=== PATIENT | male | born 1980 | race Caucasian/White ===

== ENCOUNTER → 2019-11-25 | Outpatient (CLI) | payer BC ==
[~2019-11-25] MED LIST: AMOX500C2 PO; FLUT9.9S NSEACH; PRD20T PO
== END ==
LOC: LAB 09:27
PROVIDERS: ATTEND Family Medicine
DX: A60.00 Herpesviral infection of urogenital system, unspecified (principal)
CPT/HCPCS: 36415; 86703

== ENCOUNTER → 2019-12-05 | Outpatient (CLI) | payer BC | LOC: LAB 15:33 | PROVIDERS: ATTEND Family Medicine | DX: A60.00 Herpesviral infection of urogenital system, unspecified (principal) | CPT/HCPCS: 36415; 86695; 86696 ==